=== PATIENT | male | born 1995 | race Caucasian/White ===

== ENCOUNTER 2020-04-15 08:44 | Inpatient (IN) | payer MEDICAID ==
[~2020-04-15] VITALS: Ht 177.8 cm; Wt 88.5 kg
--- NOTE | 2020-04-15 08:55 | NUR ---
PT BIBS C/O CP 410 [id number]. PT AAOX4 AND AMBULATORY. MD AT BEDSIDE FOR MSE. PT PLACED ON FULL CM AND EKG AT BEDSIDE. PT STS CP IS NON-RADIATING AND HX OF CARDIAC ABLATION AND SVT X10YRS.
[2020-04-15 08:57] VITALS: Ht 177.8 cm; Wt 88.5 kg
--- NOTE | 2020-04-15 09:14 | NUR ---
XR AT BEDSIDE FOR EXAM
[2020-04-15 09:18] LABS: PLATELET COUNT 294 x10^3mcL (130-400)
--- NOTE | 2020-04-15 09:18 | NUR ---
PT AMBULATING TO RESTROOM WITH A STEADY GAIT
[2020-04-15 09:26] LABS: MONOCYTE 6 % (0-7)
[2020-04-15 09:27] LABS: SEGMENTED NEUTROPHILS 44 % (37-75); rbc morphology (normal/abnorm) NORMAL (NORMAL)
[2020-04-15 09:31] LABS: CALCIUM 8.6 mg/dL (8.5-10.1); CARBON DIOXIDE 23.8 mmol/L (21-32); CHLORIDE SERUM 104 mmol/L (98-107); CREATININE SERUM 0.9 mg/dL (0.7-1.3); GFR1 > 60 mL/min; GLUCOSE SERUM 105 mg/dL (74-106); POTASSIUM SERUM 3.7 mmol/L (3.5-5.1); SODIUM SERUM 140 mmol/L (136-145)
[2020-04-15 09:35] LABS: ALBUMIN 3.8 g/dL (3.4-5.0); ALKALINE PHOSPHATASE 82 U/L (46-116); ALT/SGPT 60 U/L (16-63); AST/SGOT 25 U/L (15-37); BILIRUBIN TOTAL 0.4 mg/dL (0.20-1.00); TOTAL PROTEIN, SERUM 7.8 g/dL (6.4-8.2)
[2020-04-15 09:47] LABS: FREE T4 1.5 ng/dL (0.76-1.46); FREE THYROXINE INDEX 3.6 ug/dL (1.4-4.5); T4(THYROXINE) 9.7 ug/dL (4.7-13.3)
--- NOTE | 2020-04-15 10:02 | NUR ---
PT RESTING ON GURNEY S/F. STS "I FEEL THE PAIN EVERY TIME I CLOSE MY EYES. AND I FEEL A LITTLE NAUSEAS. I DIDN'T EAT ANYTHING SINCE LAST NIGHT THOUGH." NAD NOTED, VSS. WILL CONT TO MONITOR.
[2020-04-15 11:03] LABS: T3 TOTAL 1.41 ng/mL
[2020-04-15 11:03] LABS: AMPHETAMINE QUAL UR NONE DETECTED (See below)
--- NOTE | 2020-04-15 11:06 | NUR ---
PT REPORTS HE IS FEELING INCREASINGLY "ANXIOUS." MADE AWARE. MD LEIVA ORDERED ATIVAN IV FOR ANXIETY. CT AT BEDSIDE. CT REQUESTING AC LINE TO BE PLACED FOR CT ANGIO
--- NOTE | 2020-04-15 11:07 | NUR ---
PT AMBULATING TO THE RESTROOM WITH A STEADY GAIT
--- NOTE | 2020-04-15 11:55 | NUR ---
PT BACK FROM CT ANGIO
--- NOTE | 2020-04-15 12:06 | NUR ---
SPOKE TO MOTHER, COREEN OVER THE PHONE WHO CALLED FOR AN UPDATE
--- NOTE | 2020-04-15 13:09 | NUR ---
PT LAYING ON GURNEY S/F SLEEPING. PT EASILY AROUSABLE. NAD NOTED AND RESP E/U. WILL CONT TO MONITOR
--- NOTE | 2020-04-15 14:20 | NUR ---
RECEIVING COY MONTES INFORMED ME THAT SHE WILL CALL ME BACK FOR REPORT
--- NOTE | 2020-04-15 14:21 | NUR ---
RECEIVING COY MONTES INFORMED ME THAT SHE WILL CALL ME BACK FOR REPORT
--- NOTE | 2020-04-15 14:26 | NUR ---
SPOKE TO RESIDENT TO PLACE ADMIT ORDERS
--- NOTE | 2020-04-15 14:36 | NUR ---
GAVE REPORT TO SIMON CESPEDES TO ASSUME CARE. STS BED READY NOW
[2020-04-15 15:01] VITALS: BP 139/95
--- NOTE | 2020-04-15 15:08 | NUR ---
RECEIVED PT FROM ER, PT ADMIT FOR CHEST PAIN, TACHY, PT IS A/O X4 VERBAL RESPONSIVE. LUNG SOUND CLEAR BILATERAL, NO COUGH, NO SOB. . PT IS ON TELE 3, ST, HR 110 AT THIS MOMENT, STILL C/O CHEST PAIN AT LEFT CHEST AND NOT RADIATE. BOWEL SOUND PRESENT ALL 4 QUADRANTS, NO DISTENTION, NO TENDER, PEDAL PULSE PRESENT BOTH FEET, NO EDEMA, IV AT LEFT HAND, NO LEAKING, NO INFILTRAITON. ALL ADLS ASSIST, ALL NEED MET, CALL LIGHT IN REACH, WILL CONTINUE TO MONITOR.
--- NOTE | 2020-04-15 15:39 | NUR ---
RECIEVED REPORT FROM RESOURCE NURSE. PATIENT PRESENTED TO THE ER WITH CHIEF COMPLAINT OF CHEST PAIN. LUNG SOUNDS CLEAR ON ROOM AIR, PATIENT IS AWAKE ALERT AND ORIENTED X 4. IV TO LEFT HAND CURRENTLY SALINE LOCKED. PATIENT IS CURRENTLY ON TELEMETRY MONITORING AND IS SINUS TACH AT 115. NO SOB NOTED. SKIN INTACT. SAFETY PRECAUTIONS IN PLACE, CALL LIGHT WITHIN REACH. WILL CONTINUE TO PROVIDE CARE FOR PATIENT.
[2020-04-15] MEDS ORDERED: IBU400 M2 PO (17:06)
[2020-04-15 17:35] VITALS: BP 132/78
--- NOTE | 2020-04-15 18:12 | NUR ---
PATIENT IS CURRENTLY AWAKE ALERT AND ORIENTED X 4. NO REPORT OF CHEST PAIN AT THIS TIME. PATIENT IS ON TELEMETRY MONITORING. IV CURRENTLY SALINE LOCKED TO THE LEFT HAND. NO SIGNS OR SYMPTOMS OF DISTRESS. SAFETY PRECAUTIONS IN PLACE. CALL LIGHT WITHIN REACH. WILL ENDORSE ALL FURTHER CARE TO THE NOC NURSE.
[2020-04-15 18:38] LABS: CHOLESTEROL/HDL RATIO 5.8; MAGNESIUM 2.3 mg/dL (1.8-2.4); PHOSPHOROUS 4.1 mg/dL (2.5-4.9)
[2020-04-15 19:22] LABS: microscopic required? NO
[2020-04-15 19:45] LABS: urine erythrocyte NEGATIVE (NEGATIVE)
--- NOTE | 2020-04-15 19:45 | NUR ---
PATIENT RESTING IN BED, A/O X4, VERBALLY RESPONSIVE, DENIES HEADACHE AND DIZZINESS, REPORTED FEELING ANXIOUS AND STATED THAT HE HAS BEEN TRYING TO DISTRACT HIMSELF USING HIS PHONE AND TV, WILL ASK PHYSICIAN FOR ANTI-ANXIETY MEDICATION. BREATHING E/U ON ROOM AIR, SPO2 99%, DENIES SOB. TELE #3, HR 105, SINUS TACHY, C/O OF CHEST PRESSURE PAIN LEVEL 3/10, STATED IT IS TOLERABLE @ THIS TIME AND REFUSED PAIN MEDICATIONS. ABD SOFT AND ROUND. NO EDEMA NOTED. IV @ L HAND AND @ RAC BOTH INTACT, FLUSHED AND SALINE LOCKED. CALL LIGHT WITHIN REACH, BED IN LOWEST POSITION. WILL CONTINUE TO MONITOR.
--- NOTE | 2020-04-15 20:10 | NUR ---
MADE A NOTE TO RESIDENT PHYSICIAN REQUESTING FOR ANTI-ANXIETY MEDICATION FOR PATIENT'S HOSPITALIZATION ANXIETY.
--- NOTE | 2020-04-15 20:37 | NUR ---
DR. WHITMAN MADE AWARE OF PATIENT'S REQUEST FOR ANTI-ANXIETY MEDICATION. HE STATED THAT HE WILL PLACE AN ORDER FOR ANTI-ANXIETY MEDICATION PRN.
[2020-04-15 21:15] VITALS: BP 122/79
--- NOTE | 2020-04-15 22:30 | NUR ---
PATIENT C/O OF HEADACHE PAIN LEVEL 6/10, TELE #3, HR 103, SINUS TACHY, WILL GIVE TYLENOL PRN PER EMAR.
--- NOTE | 2020-04-16 00:10 | NUR ---
PATEINT RESTING IN BED WITH EYES CLOSED. EVEN CHEST RISE AND FALL. SHOWS NO SIGN OF PAIN OR DISTRESS. TELE #3, HR 81, SINUS RHYTHM. CALL LIGHT WITHIN REACH, BED IN LOWEST POSITION. WILL CONTINUE TO MONITOR.
[2020-04-16 05:46] VITALS: BP 115/73
--- NOTE | 2020-04-16 06:55 | NUR ---
PATIENT C/O OF HEADACHE 04/07, REQUESTED FOR MOTRIN PRN, GAVE MORTRIN. PATIENT RESTING IN BED, C/O OF CHEST PAIN LEVEL /10, STATED IT IS TOLERABLE. CALL LIGHT WITHIN REACH, ALL NEEDS MET, SAFETY PRECAUTIONS MAINTAINED THROUGHOUT SHIFT.
--- NOTE | 2020-04-16 07:49 | NUR ---
RECIEVED PATIENT FROM [facility] NURSE. PATIENT IS CURRENTLY ON STANDARD PRECAUTIONS. PATIENT REPORTS CHEST PAIN, BUT DOES NOT WANT ANY PAIN MEDICATION FOR CHEST PAIN AT THIS TIME. PATIENT RECIEVED MOTRION FOR HEADACHE AT 0642. PER [facility] NURSE, PATIENT HAD AN EPISODE OF ELEVATED HEART RATE TO 150'S IN THE NIGHT UPON AMBULATION TO BATHROOM WHICH HAS NOW CURRENTLY RESOLVED. CARDIO CONSULT ON BOARD- PATIENT HAS YET TO BE SEEN BY PLASTICS PROCESS HAND. IV TO LEFT HAND CURRENTLY SALINE LOCKED. SAFETY PRECAUTIONS IN PLACE. CALL LIGHT WITHIN REACH. WILL CONTINUE TO PROVIDE CARE FOR PATIENT.
[2020-04-16 08:30] VITALS: BP 127/87
[2020-04-16 10:47] LABS: CALCIUM 8.8 mg/dL (8.5-10.1); CHLORIDE SERUM 101 mmol/L (98-107); CREATININE SERUM 1.2 mg/dL (0.7-1.3); GFR1 > 60 mL/min; GLUCOSE SERUM 121 mg/dL (74-106); MAGNESIUM 2.6 mg/dL (1.8-2.4); PHOSPHOROUS 2.6 mg/dL (2.5-4.9); POTASSIUM SERUM 3.5 mmol/L (3.5-5.1); SODIUM SERUM 139 mmol/L (136-145)
[2020-04-16 11:05] LABS: BASOPHIL % 0.7 % (0-2); PLATELET COUNT 277 x10^3mcL (130-400); RED CELL DISTRIBUTION WIDTH 13.2 % (11.5-14.5)
[2020-04-16 12:30] VITALS: BP 133/91
--- NOTE | 2020-04-16 13:50 | NUR ---
DISCHARGE ORDER CURRENTLY IN PLACE FOR THIS PATIENT PENDING CARDIOLOGY CONSULT.
[2020-04-16 14:42] VITALS: BP 110/53
[2020-04-16 16:57] LABS: BASOPHIL % 0.7 % (0-2); PLATELET COUNT 286 x10^3mcL (130-400); RED CELL DISTRIBUTION WIDTH 13.1 % (11.5-14.5)
[2020-04-16 17:12] LABS: CALCIUM 8.7 mg/dL (8.5-10.1); CARBON DIOXIDE 26.3 mmol/L (21-32); CHLORIDE SERUM 103 mmol/L (98-107); CREATININE SERUM 0.9 mg/dL (0.7-1.3); GFR1 > 60 mL/min; GLUCOSE SERUM 90 mg/dL (74-106); POTASSIUM SERUM 4.1 mmol/L (3.5-5.1); SODIUM SERUM 138 mmol/L (136-145)
[2020-04-16] MEDS ORDERED: COLCHICINE0.6 M2 PO (17:13)
--- NOTE | 2020-04-16 18:29 | NUR ---
DISCHARGE INSTRUCTIONS AND PRESCRIPTIONS GIVEN TO PATIENT. ALL QUESTIONS AND CONCERNS ADDRESSED. ELEVATED MOTORMAN REMOVED AND RETURNED TO THE TELEMETRY STATION. IV CATHETER REMOVED INTACT IN PREPARATION FOR DISCHARGE. PATIENT ACCOMPANIED TO THE LOBBY BY RESOURCE NURSE AND RECIEVED BY PARENTS.
== END 2020-04-16 18:32 | disposition home or self-care (01) | DRG 145 ==
LOC: ED 08:44 → DU 13:16
PROVIDERS: Emergency Medicine; ADMIT Internal Medicine; ATTEND Internal Medicine
DX: R09.1 Pleurisy (principal); F41.9 Anxiety disorder, unspecified
CPT/HCPCS: 83880; 84439; G0378; J2060; Q0092; Q9967

== ENCOUNTER 2020-07-07 02:11 | Emergency (ER) | payer MEDICAID ==
[~2020-07-07] VITALS: Ht 177.8 cm; Wt 83.9 kg
[~2020-07-07 02:11] MED LIST: COLCHICINE0.6 M2 PO; IBU400 M2 PO
[2020-07-07 02:13] VITALS: Ht 177.8 cm; Wt 83.9 kg
[2020-07-07 04:46] LABS: BASOPHIL % 0.7 % (0-2); PLATELET COUNT 259 x10^3mcL (130-400); RED CELL DISTRIBUTION WIDTH 13.3 % (11.5-14.5)
[2020-07-07 04:53] LABS: CALCIUM 9.3 mg/dL (8.5-10.1); CARBON DIOXIDE 29.8 mmol/L (21-32); CHLORIDE SERUM 102 mmol/L (98-107); CREATININE SERUM 0.9 mg/dL (0.7-1.3); GFR1 > 60 mL/min; GLUCOSE SERUM 103 mg/dL (74-106); POTASSIUM SERUM 4.4 mmol/L (3.5-5.1); SODIUM SERUM 135 mmol/L (136-145)
[2020-07-07 04:59] LABS: ALBUMIN 3.8 g/dL (3.4-5.0); ALKALINE PHOSPHATASE 78 U/L (46-116); ALT/SGPT 66 U/L (16-63); AST/SGOT 33 U/L (15-37); BILIRUBIN TOTAL 0.4 mg/dL (0.20-1.00); TOTAL PROTEIN, SERUM 7.8 g/dL (6.4-8.2)
[2020-07-07 06:45] VITALS: BP 137/76
== END 2020-07-07 06:45 | disposition home or self-care (01) ==
LOC: ED 02:11
PROVIDERS: Emergency Medicine
DX: R07.89 Other chest pain (principal); R06.02 Shortness of breath
CPT/HCPCS: 83880; 85378; J3535; Q0092